=== PATIENT | male | born 1985 | race Hispanic/Latino ===

== ENCOUNTER 2018-01-29 17:27 | Emergency (ER) | payer BC ==
[2018-01-29 17:35] VITALS: BP 118/68; PULSE 96; RESP 20; TEMP 97.9; O2SAT 99
[2018-01-29] MEDS ORDERED: Oxycodone/Acetaminophen 5/325 mg Tab PO STA (17:39)
--- NOTE | 2018-01-29 18:41 | ED PDOC ---
Lower Extremity Pain/Injury Time Seen by Provider: 01/29/18 17:36 Chief Complaint (Nursing): Lower Extremity Problem/Injury Chief Complaint (Provider): Lower Extremity Problem/Injury History Per: Patient History/Exam Limitations: no limitations Onset/Duration Of Symptoms: Hrs (prior to arrival) Current Symptoms Are (Timing): Still Present Additional Complaint(s): Fransisco Dunn is a 32 year old male with a past medical history of diabetes, who is presenting to the ER for evaluation of right ankle injury, s/p stepping into a pothole prior to arrival. Patient states that he noted immediate swelling and reports that in 2016, he had hardware placed in the foot by Dr. Barbosa. Patient denies any numbness or tingling. He offers no other medical complaints at this time. PMD: none provided Past Medical History Reviewed: Historical Data, Nursing Documentation, Vital Signs Vital Signs: Last Vital Signs Temp 97.9 F 01/29/18 17:33 Pulse 96 H 01/29/18 17:33 Resp 20 01/29/18 17:33 BP 118/68 01/29/18 17:33 Pulse Ox 99 01/29/18 17:33 - Medical History PMH: Diabetes Other PMH: Ulcerative Colitis - Family History Family History: States: Unknown Family Hx - Social History Alcohol: Social - Home Medications Home Medications: Ambulatory Orders Medication Instructions Recorded Naproxen [Naprosyn] 500 mg PO BID PRN #20 tablet 03/28/16 oxyCODONE/Acetaminophen [Percocet 1 ea PO Q8 PRN #14 tab 01/29/18 5/325 mg Tab] - Allergies Allergies/Adverse Reactions: Allergies Allergy/AdvReac Type Severity Reaction Status Date / Time No Known Allergies Allergy Verified 03/28/16 08:51 Review of Systems ROS Statement: Except As Marked, All Systems Reviewed And Found Negative Musculoskeletal: Positive for: Leg Pain (ankle pain and swelling) Neurological: Negative for: Numbness, Other (tingling) Physical Exam - Reviewed Nursing Documentation Reviewed: Yes Vital Signs Reviewed: Yes - Physical Exam Appears: Positive for: Non-toxic, No Acute Distress Head Exam: Positive for: ATRAUMATIC, NORMAL INSPECTION, NORMOCEPHALIC Neck: Positive for: Normal, Painless ROM, Supple Respiratory: Negative for: Respiratory Distress Pulses-Dorsalis Pedis (L): 2+ Pulses-Dorsalis Pedis (R): 2+ Extremity: Positive for: Tenderness (moderate to lateral malleolus, no foot tenderness), Capillary Refill (normal, less than 2 seconds), Swelling (right ankle, moderate) Neurologic/Psych: Positive for: Alert, Oriented. Negative for: Motor/Sensory Deficits - ECG O2 Sat by Pulse Oximetry: 99 (RA) Pulse Ox Interpretation: Normal Medical Decision Making Medical Decision Making: Time: 17:39 Plan: --X-Ray Right Ankle --Percocet 2 tab PO Pt. evaluated by Dr. Pino, podiatry resident, who spoke with Dr. Barbosa and arranged f/u with her office next week. Ankle was immobilized by Dr. Pino who also provided crutches for patient. Scribe Attestation: Documented by Ophelia Baugh, acting as a scribe for Marc Taylor PA-C. Provider Scribe Attestation: All medical record entries made by the Scribe were at my direction and personally dictated by me. I have reviewed the chart and agree that the record accurately reflects my personal performance of the history, physical exam, medical decision making, and the department course for this patient. I have also personally directed, reviewed, and agree with the discharge instructions and disposition. Disposition - Clinical Impression Clinical Impression: Ankle sprain - Patient ED Disposition Is Patient to be Admitted: No - Disposition Referrals: Berenice Barbosa DPM [Staff Provider] - Disposition: Routine/Home Disposition Time: 19:00 Condition: STABLE Additional Instructions: Follow up with Dr. Barbosa without fail. Return to ED immediately if symptoms worsen. Prescriptions: oxyCODONE/Acetaminophen [Percocet 5/325 mg Tab] 1 ea PO Q8 PRN #14 tab PRN Reason: Pain Instructions: Ankle Sprain (DC), How to Use Crutches Forms: [facility] (Bermudian) Print Language: SWEDISH
--- NOTE | 2018-01-29 19:02 | CP.PCM.PN ---
Subjective - Date & Time of Evaluation Date of Evaluation: 01/29/18 Time of Evaluation: 18:59 - Subjective Subjective: 32 year old male seen in ED complaining of right ankle pain after twisting his ankle in a pot hole early this evening. Patient states that when he twisted the ankle he heard a pop and was immediately unable to bear weight. He denies any treatment up to this point. Denies any further pedal complaints at this time. Denies any recent N/V/F/C/CP/SOB/D/posterior calf pain when squeezed. Patient has a history of fifth metatarsal base fracture to the same foot that was treated by Dr. Barbosa via ORIF in 2016 Objective - Vital Signs/Intake and Output Vital Signs (last 24 hours): Temp Pulse Resp BP Pulse Ox 97.9 F 96 H 20 118/68 99 01/29/18 17:33 01/29/18 17:33 01/29/18 17:33 01/29/18 17:33 01/29/18 18:46 - Constitutional Appears: Well, Non-toxic, No Acute Distress - Extremities Exam Additional comments: RLE focused exam: Vasc: DP/PT pulses fully palpable 2/4 b/l. Skin temperature warm to warm from proximal to distal. CFT < 3 seconds to all digits. Severe edema noted to lateral malleolus Neuro: Epicritic and protective sensation grossly intact b/l Derm: No open lesions, wounds, maceration, xerosis, abnormal pigmentation or abnormal growths noted b/l. Mild ecchymosis noted to lateral malleolus MSK: Severe POP along course of peroneal tendons and at level of ATFL. Limited AROM and PROM of ankle joint due to guarding. No POP to medial malleolus, achilles tendon, achilles tendon insertion site, styloid process of fifth metatarsal. - Neurological Exam Neurological Exam: Alert, Awake, Oriented x3 - Psychiatric Exam Psychiatric exam: Normal Affect, Normal Mood Assessment and Plan - Assessment and Plan (Free Text) Assessment: 32 year old male seen in ED for lateral ankle sprain of right foot Plan: Patient seen and evaluated in ED Plan discussed with attending Dr. Barbosa Charts, labs, vitals reviewed R ankle xray reviewed - no signs of fracture or syndesmotic rupture noted. All previous surgical hardware remains intact and in good position Patient dressed in Vasquez compression to right ankle and given crutches Advised to practice RICE therapy at home Rx Percocet for breakthrough pain Patient to follow up with Dr. Barbosa at her private office this week Patient advised to return to ED if any tingling, numbness or pain out of proportion occurs
--- NOTE | 2018-01-30 08:34 | RAD ---
PROCEDURE: Right Ankle Radiographs. HISTORY: trauma COMPARISON: Right ankle radiographs dated 03/28/2016 FINDINGS: BONES: No acute fracture. Prior ORIF of the 5th metatarsal base. JOINTS: Ankle mortise maintained. Talar dome intact SOFT TISSUES: Lateral malleolar soft tissue swelling. OTHER FINDINGS: None. IMPRESSION: Lateral malleolar soft tissue swelling without demonstrated acute fracture or dislocation.
== END 2018-01-29 19:15 | disposition home or self-care (01) ==
LOC: H.ER 17:27
DX: S93.401A Sprain of unspecified ligament of right ankle, initial encounter (principal); X50.9XXA Other and unspecified overexertion or strenuous movements or postures, initial encounter; Y92.410 Unspecified street and highway as the place of occurrence of the external cause; E11.9 Type 2 diabetes mellitus without complications